=== PATIENT | female | born 2000 | race Caucasian/White ===

== ENCOUNTER 2023-12-08 06:00 | Inpatient (IN) | payer OTHER ==
[2023-12-08] MEDS: ELECTROLYTE-148 SOLN 1,000 ML IV SCH (06:35)
[2023-12-08 06:54] VITALS: BMI 31.2
[2023-12-08] MEDS ORDERED: LIDOCAINE HCL 1% PRESERVATIVE FREE - 30ML VIAL ONE (07:09)
[2023-12-08] MEDS ORDERED: OXYTOCIN 20 UNITS in 0.9% NS 20 UNIT/1,000 ML INFUS.BAG IV ONE (07:09)
[2023-12-08] MEDS: OXYTOCIN 20 UNITS in 0.9% NS 20 UNIT/1,000 ML INFUS.BAG IV SCH (07:15)
[2023-12-08 07:19] LABS: BASO % 0.4 % (0-2.0); EOS % 1.1 % (0-4.5); HEMATOCRIT 30.8 % (32.4-45.2); HEMOGLOBIN 10.2 GM/dL (10.7-15.3); LYMPH % 11.6 % (8-40); MCH 26.8 pg (25.7-33.7); MCHC 33.2 g/dl (32.0-36.0); MEAN CELL VOLUME 80.6 fl (80-96); MEAN PLT VOLUME 8.1 fl (7.5-11.1); MONO % 6.4 % (3.8-10.2); NEUT % 80.5 % (42.8-82.8); PLATELET COUNT 269 10^3/uL (134-434); RBC 3.83 M/mm3 (3.60-5.2); RDW 16.4 % (11.6-15.6); WHITE BLOOD COUNT 14.7 K/mm3 (4.0-10.0)
[2023-12-08] MEDS ORDERED: oxyCODONE HCL 5 MG TABLET ONE (07:25)
[2023-12-08] MEDS: oxyCODONE HCL 5 MG TABLET PO PRN (07:27)
[2023-12-08 07:28] LABS: INR 0.96 (0.83-1.09)
[2023-12-08 07:33] LABS: POTASSIUM 3.6 mmol/L (3.5-5.1)
[2023-12-08 07:35] LABS: BLOOD UREA NITROGEN 4.3 mg/dL (7-18); CALCIUM 7.8 mg/dL (8.5-10.1)
[2023-12-08 07:40] LABS: CREATININE 0.6 mg/dL (0.55-1.3)
[2023-12-08] MEDS ORDERED: BISACODYL 10 MG SUPP.RECT RC PRN (08:02)
[2023-12-08] MEDS ORDERED: BENZOCAINE 28 GM HEMORRHOIDAL OINTMENT TP PRN (08:02)
[2023-12-08] MEDS ORDERED: ACETAMINOPHEN 325 MG TABLET (FP) PO PRN (08:02)
[2023-12-08] MEDS ORDERED: BENZOCAINE 20% 57 GM BOTTLE TP PRN (08:02)
[2023-12-08] MEDS ORDERED: METHYLERGONOVINE MALEATE 0.2 MG/1 ML AMP IM PRN (08:02)
[2023-12-08] MEDS ORDERED: WITCH HAZEL 50% (TUCKS) 40 PAD/JAR PAD TP PRN (08:02)
[2023-12-08] MEDS: PRENATAL VITAMINS W/ FOLIC ACID TABLET (FP) PO SCH (09:28)
[2023-12-08] MEDS ORDERED: PRENATAL VITAMINS W/ FOLIC ACID TABLET (FP) PO ONE (09:33)
[2023-12-08] MEDS: IBUPROFEN 600 MG TABLET (FP) PO PRN (23:44)
[2023-12-09 02:05] VITALS: RESP 18
[2023-12-09 07:09] LABS: BASO % 0.4 % (0-2.0); EOS % 2.4 % (0-4.5); HEMATOCRIT 27.5 % (32.4-45.2); HEMOGLOBIN 9.2 GM/dL (10.7-15.3); LYMPH % 17.5 % (8-40); MCH 26.8 pg (25.7-33.7); MCHC 33.3 g/dl (32.0-36.0); MEAN CELL VOLUME 80.4 fl (80-96); MEAN PLT VOLUME 8.6 fl (7.5-11.1); MONO % 7.9 % (3.8-10.2); NEUT % 71.8 % (42.8-82.8); PLATELET COUNT 223 10^3/uL (134-434); RBC 3.42 M/mm3 (3.60-5.2); RDW 16.1 % (11.6-15.6)
[2023-12-09] MEDS ORDERED: SENNOSIDES/DOCUSATE COMBO (SENNA PLUS) TABLET (UD) PO PRN (22:00)
[2023-12-10 09:17] VITALS: BP 104/70; PULSE 86; TEMP 98
== END 2023-12-10 12:50 | disposition home or self-care (01) | DRG 560 ==
LOC: JDEL 06:00 → JLDR 06:20 → J3W 10:10
PROVIDERS: ADMIT Obstetrics & Gynecology; ATTEND Obstetrics & Gynecology
PROC: 10E0XZZ Delivery of Products of Conception, External Approach (ICD-10-PCS; principal; 2023-12-08)
PROC: 0HQ9XZZ Repair Perineum Skin, External Approach (ICD-10-PCS; 2023-12-08)
DX: O48.0 Post-term pregnancy (principal); O70.0 First degree perineal laceration during delivery; Z3A.40 40 weeks gestation of pregnancy; Z37.0 Single live birth
CPT/HCPCS: 36415; 59409; 80048; 85025; 85610; 85730; 86780; 86850; 86900; 86901